=== PATIENT | male | born 1990 | race American Indian/Alaskan Native ===

== ENCOUNTER 2020-07-13 15:03 | Emergency (ER) | payer OTHER ==
[2020-07-13 15:15] VITALS: BP 95/69
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
--- NOTE | 2020-07-13 17:51 | XRay Report ---
XR chest routine 2V INDICATION / CLINICAL INFORMATION: chest pain COMPARISON: None available. FINDINGS: SUPPORT DEVICES: None. HEART / MEDIASTINUM: No significant abnormality. LUNGS / PLEURA: Lungs are clear. Costophrenic sulci are sharp. No pneumothorax. ADDITIONAL FINDINGS: No significant additional findings. IMPRESSION: 1. No acute findings. Signer Name: Ike Saunders MD Signed: 07/13/2020 5:46 PM Workstation Name: [id number]
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
== END 2020-07-13 16:15 | disposition home or self-care (01) ==
LOC: ED 15:03
DX: S00.93XA Contusion of unspecified part of head, initial encounter (principal); S09.90XA Unspecified injury of head, initial encounter; F12.90 Cannabis use, unspecified, uncomplicated; Z79.899 Other long term (current) drug therapy; V49.49XA Driver injured in collision with other motor vehicles in traffic accident, initial encounter; Y92.410 Unspecified street and highway as the place of occurrence of the external cause; Y93.89 Activity, other specified; Y99.8 Other external cause status
CPT/HCPCS: 70450; 71046; 72100; 72125

== ENCOUNTER 2020-12-10 21:02 | Emergency (ER) | payer SELFPAY ==
[2020-12-10 21:31] VITALS: BP 130/89
[2020-12-10 22:55] LABS: Bilirubin,Urine NEG (Negative); Blood,Urine NEG (Negative); Color,Urine Yellow (Yellow); Mucus,Urine FEW /HPF; Protein,Urine <15 mg/dL mg/dL (Negative)
[2020-12-10] MEDS ORDERED: AZITHROMYCIN 250 MG TAB PO ONE (23:05)
[2020-12-10] MEDS ORDERED: LIDOCAINE-MPF (1%) 10 MG/1 ML VIAL 5 ML INFILTRATI ONE ×2 (23:05→23:13)
--- NOTE | 2020-12-10 23:52 | Emergency Department Report ---
ED Male HPI - General Chief complaint: Urogenital-Male Stated complaint: STD CHECK Time Seen by Provider: 12/10/20 22:02 Source: patient Mode of arrival: Ambulatory Limitations: No Limitations - History of Present Illness Initial comments: This is a 30-year-old male nontoxic, well nourished in appearance, no acute signs of distress presents to the ED with c/o of penile discharge and dysuria. Patient denies any testicular pain or swelling. Patient denies any penile ulcers or lesions. Patient denies any nausea, vomiting, chest pain, shortness of breathe, fever, chills, headache, back pain, numbness, tingling, stiff neck. Patient denies any urinary symptoms. Patient denies any allergies or PMH. MD Complaint: penile discharge, dysuria -: days(s) Location: penis Radiation: none Severity: mild Severity scale (0 -10): 3 Quality: burning Consistency: constant Improves with: none Worsens with: urination discharge. denies: swelling, mass, rash, urinary retention, blood in urine, dysuria, fever, nausea/vomiting, incontinence - Related Data Sexually active: Yes Previous Rx's Medication Instructions Recorded Last Taken Type Cyclobenzaprine HCl [Flexeril 5 MG 5 mg PO TID PRN #21 tab 07/13/20 Unknown Rx TAB] Naproxen [Naprosyn] 500 mg PO BID #14 tablet 07/13/20 Unknown Rx Allergies Allergy/AdvReac Type Severity Reaction Status Date / Time No Known Allergies Allergy Unverified 07/13/20 15:13 ED Review of Systems ROS: Stated complaint: STD CHECK Other details as noted in HPI Comment: All other systems reviewed and negative Constitutional: denies: chills, fever Eyes: denies: eye pain, eye discharge, vision change ENT: denies: ear pain, throat pain Respiratory: denies: cough, shortness of breath, wheezing Cardiovascular: denies: chest pain, palpitations Endocrine: no symptoms reported Gastrointestinal: denies: abdominal pain, nausea, diarrhea Genitourinary: dysuria, discharge. denies: urgency, frequency, hematuria, testicular pain, testicular mass Musculoskeletal: denies: back pain, joint swelling, arthralgia Skin: denies: rash, lesions Neurological: denies: headache, weakness, paresthesias Psychiatric: denies: anxiety, depression Hematological/Lymphatic: denies: easy bleeding, easy bruising ED Past Medical Hx - Past Medical History Previous Medical History?: No - Surgical History Past Surgical History?: No - Social History Smoking Status: Current Every Day Smoker Substance Use Type: None - Medications Home Medications: Home Medications Medication Instructions Recorded Confirmed Last Taken Type Cyclobenzaprine HCl [Flexeril 5 MG 5 mg PO TID PRN #21 tab 07/13/20 Unknown Rx TAB] Naproxen [Naprosyn] 500 mg PO BID #14 tablet 07/13/20 Unknown Rx ED Physical Exam - General Limitations: No Limitations General appearance: alert, in no apparent distress - Head Head exam: Present: atraumatic, normocephalic - Eye Eye exam: Present: normal appearance - Neck Neck exam: Present: normal inspection, full ROM. Absent: lymphadenopathy - Respiratory Respiratory exam: Absent: respiratory distress - Cardiovascular Cardiovascular Exam: Present: regular rate - GI/Abdominal GI/Abdominal exam: Present: soft, normal bowel sounds. Absent: distended, tenderness, guarding, rebound, rigid, diminished bowel sounds - Extremities Exam Extremities exam: Present: full ROM - Back Exam Back exam: Present: normal inspection, full ROM. Absent: tenderness, CVA tenderness (R), CVA tenderness (L), muscle spasm, paraspinal tenderness, vertebral tenderness, rash noted - Neurological Exam Neurological exam: Present: alert, oriented X3, normal gait - Psychiatric Psychiatric exam: Present: normal affect, normal mood - Skin Skin exam: Present: warm, dry, intact, normal color. Absent: rash ED Course Vital Signs 12/10/20 21:26 Temperature 98.4 F Pulse Rate 79 Respiratory 18 Rate Blood Pressure 130/89 O2 Sat by Pulse 100 Oximetry - Reevaluation(s) Reevaluation #1: 12/10/20 23:51 Patient is speaking in full sentences with no signs of distress noted. ED Medical Decision Making - Lab Data Lab Results 12/10/20 Range/Units 22:39 Urine Color Yellow (Yellow) Urine Turbidity Clear (Clear) Urine pH 5.0 (5.0-7.0) Ur Specific Shunk 1.031 H (1.003-1.030) Urine Protein <15 mg/dl (Negative) mg/dL Urine Glucose (UA) Neg (Negative) mg/dL Urine Ketones Neg (Negative) mg/dL Urine Blood Neg (Negative) Urine Nitrite Neg (Negative) Urine Bilirubin Neg (Negative) Urine Urobilinogen 2.0 (<2.0) mg/dL Ur Leukocyte Esterase Mod (Negative) Urine WBC (Auto) 33.0 H (0.0-6.0) /HPF Urine RBC (Auto) 7.0 (0.0-6.0) /HPF U Epithel Cells (Auto) < 1.0 (0-13.0) /HPF Urine Mucus Few /HPF - Medical Decision Making This is a 30-year-old female that presents with possible STD. Patient is stable was examined by me. There is no abdominal tenderness. No pelvic pain. UA obtained. Gonorrhea chlamydia swab pending. Patient was instructed to return in 3-5 days for GC results. Patient wanted empirical treatment so patient received 1 g Rocephin and 1 g of azithromycin by mouth. Patient was instructed to Follow-up with a primary care doctor in 3-5 days or if symptoms worsen and continue return to emergency room as soon as possible. At time of discharge, the patient does not seem toxic or ill in appearance. No acute signs of distress noted. Patient agrees to discharge treatment plan of care. No further questions noted by the patient. Critical care attestation.: If time is entered above; I have spent that time in minutes in the direct care of this critically ill patient, excluding procedure time. ED Disposition Clinical Impression: Possible exposure to STD Disposition: DC-01 TO HOME OR SELFCARE Is pt being admited?: No Does the pt Need Aspirin: No Condition: Stable Instructions: Safe Sex Additional Instructions: Follow-up with a primary care doctor in 3-5 days or if symptoms worsen and continue return to emergency room as soon as possible. Referrals: MICHELLE TREVINO MD [Primary Care Provider] - 3-5 Days PRIMARY MD CEDRIC [Referring] - 3-5 Days EMELYN MARTINEZ MD [Staff Physician] - 3-5 Days Time of Disposition: 23:51
== END 2020-12-11 00:05 | disposition home or self-care (01) ==
LOC: ED 21:02
DX: R36.9 Urethral discharge, unspecified (principal); R30.0 Dysuria; Z20.2 Contact with and (suspected) exposure to infections with a predominantly sexual mode of transmission; F17.200 Nicotine dependence, unspecified, uncomplicated; Z79.899 Other long term (current) drug therapy
CPT/HCPCS: 81001; 87086; 87591; 96372; 99283; J0696

== ENCOUNTER 2021-01-22 14:57 | Emergency (ER) | payer SELFPAY | END 2021-01-22 18:52 | disposition left against medical advice (07) | LOC: ED 14:57 | DX: M25.549 Pain in joints of unspecified hand (principal); Z53.21 Procedure and treatment not carried out due to patient leaving prior to being seen by health care provider ==